=== PATIENT | male | born 1980 | race Caucasian/White ===

== ENCOUNTER 2017-09-02 10:55 | Emergency (ER) | payer SELFPAY ==
[2017-09-02] MEDS ORDERED: IBUPROFEN 800 MG TABLET PO ONE (11:30)
--- NOTE | 2017-09-02 11:36 | ER Document Report ---
ED Extremity Problem, Lower - General Chief Complaint: Ankle Pain Stated Complaint: RIGHT ANKLE PAIN Time Seen by Provider: 09/02/17 11:24 Mode of Arrival: Ambulatory Information source: Patient Notes: 36-year-old male presents to ED for complaint of pain to the right Achilles tendon since a week ago. He states he does not remember any injury or anything it is just been painful for the last week. States he went to the races last night on the way home he had a flat tire changed to*and by the time he got home his ankle was bruised swollen and very painful. States he wrapped it up used ice and went to bed. States he came in this morning because the pain is still bad he has had some bruising and swelling to the ankle. Patient is alert and oriented, pupils equal react to light, speaking in full sentences, patient is able to ambulate but with pain to the ankle. TRAVEL OUTSIDE OF THE [place] IN LAST 30 DAYS: No - HPI Patient complains to provider of: Pain, Swelling, Other - Ecchymosis to the right ankle Location: Ankle, Foot Occurred: Last week Onset/Duration: Gradual, Intermittent Quality of pain: Sharp, Throbbing Severity: Moderate Pain Level: 2 Recent injury: Possibly Associated symptoms: Painful ambulation Exacerbated by: Hanging down, Movement, Walking Relieved by: Elevation, Ice, Rest Past Medical History - General Information source: Patient - Social History Smoking Status: Current Every Day Smoker Cigarette use (# per day): Yes - Pack per day Chew tobacco use (# tins/day): No Smoking Education Provided: Yes - 4 minutes Frequency of alcohol use: Heavy - A couple beers a day Drug Abuse: None 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 Lives with: Family Family History: Reviewed & Not Pertinent Patient has suicidal ideation: No Patient has homicidal ideation: No - Past Medical History Cardiac Medical History: Reports: None Pulmonary Medical History: Reports: None EENT Medical History: Reports: None Neurological Medical History: Reports: None Endocrine Medical History: Reports: None Renal/ Medical History: Reports: None Malignancy Medical History: Reports None GI Medical History: Reports: None Musculoskeltal Medical History: Reports Hx Musculoskeletal Deformity, Reports Hx Musculoskeletal Trauma Skin Medical History: Reports None Psychiatric Medical History: Reports: None Traumatic Medical History: Reports: None Infectious Medical History: Reports: None Past Surgical History: Reports: Hx Cholecystectomy Review of Systems - Review of Systems Constitutional: No symptoms reported EENT: No symptoms reported Cardiovascular: No symptoms reported Respiratory: No symptoms reported Gastrointestinal: No symptoms reported Genitourinary: No symptoms reported Male Genitourinary: No symptoms reported Musculoskeletal: Ankle swelling - Ankle pain bruising and swelling to the right ankle Skin: No symptoms reported Hematologic/Lymphatic: No symptoms reported Neurological/Psychological: No symptoms reported -: Yes All other systems reviewed and negative Physical Exam - Vital signs Vitals: Temp Pulse Resp BP Pulse Ox 98.9 F 83 16 126/76 H 95 09/02/17 11:04 09/02/17 11:04 09/02/17 11:04 09/02/17 11:04 09/02/17 11:04 Interpretation: Normal - General General appearance: Appears well, Alert - HEENT Head: Normocephalic, Atraumatic Eyes: Normal Pupils: PERRL - Respiratory Respiratory status: No respiratory distress Chest status: Nontender Breath sounds: Normal Chest palpation: Normal - Cardiovascular Rhythm: Regular Heart sounds: Normal auscultation Murmur: No - Abdominal Inspection: Normal Distension: No distension Bowel sounds: Normal Tenderness: Nontender Organomegaly: No organomegaly - Back Back: Normal, Nontender - Extremities General upper extremity: Normal inspection, Nontender, Normal color, Normal ROM , Normal temperature General lower extremity: Normal temperature. No: Mason's sign Ankle: Tender, Ecchymosis, Edema, Limited ROM - Due to pain, Unable to bear weight - Full Foot: Tender, Ecchymosis, Edema - Neurological Neuro grossly intact: Yes Cognition: Normal Orientation: AAOx4 Khris Coma Scale Eye Opening: Spontaneous Benson Coma Scale Verbal: Oriented Benson Coma Scale Motor: Obeys Commands Benson Coma Scale Total: 15 Speech: Normal Motor strength normal: LUE, RUE, LLE, RLE Sensory: Normal - Psychological Associated symptoms: Normal affect, Normal mood - Skin Skin Temperature: Warm Skin Moisture: Dry Skin Color: Normal Course - Re-evaluation Re-evalutation: 09/02/17 22:53 X-ray discussed with patient and written report given to patient. Patient was treated with Toney wrap and stirrup splint and crutches for his injury to his ankle. Patient was instructed to elevate ice and use ibuprofen for the pain. Patient was instructed to follow-up with orthopedics. - Vital Signs Vital signs: Temp Pulse Resp BP Pulse Ox 98.9 F 78 18 120/72 99 09/02/17 11:04 09/02/17 13:25 09/02/17 13:25 09/02/17 13:25 09/02/17 13:25 - Diagnostic Test Radiology reviewed: Image reviewed, Reports reviewed Discharge - Discharge Clinical Impression: Right ankle sprain Qualifiers: Encounter type: initial encounter Involved ligament of ankle: unspecified ligament Qualified Code(s): S93.401A - Sprain of unspecified ligament of right ankle, initial encounter Condition: Stable Disposition: HOME, SELF-CARE Additional Instructions: SPRAINED ANKLE: Your sprained ankle results from stretching or tearing of the ligaments which support the ankle. This usually results from twisting the foot inward and under. The ligaments will require time and protection in order to heal properly. Many ankle sprains are quite disabling, and should be taken seriously. The usual treatment for an ankle sprain is cold packs; protection with tape , splints, or wraps; elevation; and staying off the ankle for at least a day. As the ankle improves, you can walk IF it's not painful to bear weight. Sports are best postponed until healing is complete. More serious sprains usually require strengthening exercises after early healing. Your physician has assessed the seriousness of the ligament injury to your ankle. However, the treatment may change, depending on how your ankle progresses. If further exams were recommended, it is important that you follow through. Call the doctor if your foot becomes numb, painful, or severely swollen. TONEY WRAP: A compression dressing (toney wrap) has been placed. This helps hold the area still. It limits swelling and internal bleeding. The wrap should be comfortably snug -- not tight. You should feel a sense of pressure, but not severe pain under the wrap. Unless the physician tells you otherwise, you can adjust the wrap for comfort. If the wrap causes symptoms suggesting it's too tight -- uncomfortable pressure, swelling or discoloration beyond the wrap, numbness, or severe pain - - you must loosen the wrap. If these symptoms don't resolve promptly, return for re-evaluation. ANKLE STIRRUP SPLINT: You are to use an ankle brace called a stirrup splint. This type of brace allows you to place greater stresses on the ankle without risk of re-injury, and is often used for more severe ankle injuries such as avulsion fractures and ligament ruptures. The splint can be worn over a sock or tape. For proper support, wear the splint with a shoe over it. It's important that the splint fit properly. Adjust the heel tension, if needed. If your splint has air bladders, peel back the bottom of each air bladder, then move the Velcro attachment of the heel strap up or down. Air bladder pressure can be adjusted by pulling up the valve at the top, threading the air tube down into the main bladder, then blowing air into the bladder or squeezing it out. The two sides of the stirrup can be moved forward or back on your ankle by changing the attachment of the main straps. If you are unable to use the ankle comfortably in the splint, return for re -evaluation. ICE & ELEVATION: Apply ice packs frequently against the painful area. Many different schedules are recommended, such as "20 minutes on, 20 minutes off" or "one hour ice, two hours rest." If you need to work, you may need to go longer between ice treatments. You should plan to have the area ice packed AT LEAST one- fourth of the time. The ice should be applied over the wrap, tape, or splint, or over a layer of cloth -- not directly against the skin. Some ice bags have a built-in cloth and can be put directly on the skin. Your injured part should be elevated as much as possible over the next 48 hours. Try to keep the injury above the level of the heart. Avoid use of the injured area. Elevation and rest will decrease the swelling. USE OF KAOQ-NHF-SNAICOK IBUPROFEN: Ibuprofen (Advil, Nuprin, Medipren, Motrin IB) is a medication for fever and pain control. In addition, it has anti- inflammatory effects which may be beneficial, especially in the treatment of injuries. It's best to take ibuprofen with food. Persons with ulcer disease or allergy to aspirin should notify their physician of this before taking ibuprofen. Ibuprofen can be given every four to six hours, for a total of four doses daily. Age Pain or fever dose Antiinflammatory dose 6-8 yr 200 mg (1 tab) 200 mg (1 tab) 9-11 yr 200 mg (1 tab) 200-400 mg (1-2 tab) 11-14 yr 200-400 mg (1-2 tab) 400 mg (2 tab) 15-adult 400 mg (2 tab) 600 mg (3 tab) ORAL NARCOTIC MEDICATION: You have been given a prescription for pain control. This medication is a narcotic. It's best taken with food, as nausea can result if taken on an empty stomach. Don't operate machinery or drive within six hours of taking this medication. Do not combine this medicine with alcohol, or with any medication which can cause sedation (such as cold tablets or sleeping pills) unless you get permission from the physician. Narcotics tend to cause constipation. If possible, drink plenty of fluids and eat a diet high in fiber and fruits. Please be aware that prescription narcotics also have the potential for abuse. People become addicted to these medications because of the general sense of wellbeing that they induce. This feeling along with a significant reduction in tension, anxiety, and aggression provides a stimulating seductive quality to these drugs. Once your pain is under control, we encourage you to discard your unused narcotics. FOLLOW-UP CARE: If you have been referred to a physician for follow-up care, call the physician s office for an appointment as you were instructed or within the next two days. If you experience worsening or a significant change in your symptoms, notify the physician immediately or return to the Emergency Department at any time for re-evaluation. Prescriptions: Hydrocodone/Acetaminophen [[place] 5-325 mg Tablet] 1 tab PO Q6HP PRN #7 tablet PRN Reason: Forms: Elevated Blood Pressure, Smoking Cessation Education, Return to Work Referrals: DU SUN MD [ACTIVE STAFF] - Follow up as needed
--- NOTE | 2017-09-02 12:33 | RADIOLOGY REPORT (SQ) ---
EXAM DESCRIPTION: FOOT RIGHT COMPLETE COMPLETED DATE/TIME: 09/02/2017 12:15 pm REASON FOR STUDY: pain swelling bruising COMPARISON: None. NUMBER OF VIEWS: Three views. TECHNIQUE: AP, lateral and oblique without weight bearing radiographic images acquired of the right foot. LIMITATIONS: None. FINDINGS: MINERALIZATION: Normal. BONES: No acute fracture or dislocation. No worrisome bone lesions. No significant osteophytes. JOINTS: No erosions. No shekhar-articular osteopenia. No chondrocalcinosis. SOFT TISSUES: No swelling. No calcifications. OTHER: No other significant finding. IMPRESSION: NEGATIVE STUDY OF THE RIGHT FOOT. NO ACUTE POST-TRAUMATIC CHANGES. NO EXPLANATION FOR PA IN. TECHNICAL DOCUMENTATION: JOB ID: [id number] [employer]- All Rights Reserved Reading location - IP/workstation name: [email or web address]
--- NOTE | 2017-09-02 12:34 | RADIOLOGY REPORT (SQ) ---
EXAM DESCRIPTION: ANKLE RIGHT COMPLETE COMPLETED DATE/TIME: 09/02/2017 12:15 pm REASON FOR STUDY: pain swelling bruising COMPARISON: None. NUMBER OF VIEWS: Three views. TECHNIQUE: AP, lateral, and oblique without weight bearing radiographic images acquired of the right ankle. LIMITATIONS: None. FINDINGS: MINERALIZATION: Normal. BONES: No acute fracture or dislocation. No worrisome bone lesions. Normal alignment. No significant arthritic changes. JOINTS AND SOFT TISSUES: No swelling. No calcifications. No foreign bodies. OTHER: No other significant finding. IMPRESSION: NEGATIVE STUDY OF THE RIGHT ANKLE. NO ACUTE POST-TRAUMATIC CHANGES. NO EXPLANATION FOR P AIN. TECHNICAL DOCUMENTATION: JOB ID: [id number] [employer]- All Rights Reserved Reading location - IP/workstation name: [email or web address]
[2017-09-02 13:26] VITALS: BP 120/72
== END 2017-09-02 13:25 | disposition home or self-care (01) ==
LOC: ER 10:55
DX: S93.401A Sprain of unspecified ligament of right ankle, initial encounter (principal); S90.01XA Contusion of right ankle, initial encounter; M25.571 Pain in right ankle and joints of right foot; M79.89 Other specified soft tissue disorders; X58.XXXA Exposure to other specified factors, initial encounter; F17.210 Nicotine dependence, cigarettes, uncomplicated
CPT/HCPCS: 99406; 99283; 73610; 73630; L1902

== ENCOUNTER 2018-07-15 15:32 | Emergency (ER) | payer SELFPAY ==
--- NOTE | 2018-07-15 15:43 | ER Document Report ---
ED Medical Screen (RME) - General Chief Complaint: Rectal Bleeding Stated Complaint: RECTAL BLEEDING Time Seen by Provider: 07/15/18 15:41 Mode of Arrival: Ambulatory Information source: Patient Notes: 37-year-old male presented to ED for complaint of rectal bleeding. He states he was at work and thought he was sweating a lot went to the bathroom and his underwear were full of blood. He states he is having a little bit of low abdominal cramping and sharp pain but does not know of any hemorrhoids. I did examine his rectal area and he does have a large external hemorrhoid and a lot of blood all over both buttocks and his groin area. Will get CBC and chemistry and have follow-up with a provider in the main ED. Patient states his only history is gallbladder removal at a dose fracture. 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 He is alert oriented respirations regular and unlabored speaking in full sentences walks with a even steady gait. He states it is of a painful to sit down. I have greeted and performed a rapid initial assessment of this patient. A comprehensive ED assessment and evaluation of the patient, analysis of test results and completion of medical decision making process will be conducted by an additional ED providers. TRAVEL OUTSIDE OF THE [place] IN LAST 30 DAYS: No Past Medical History Renal/ Medical History: Denies: Hx Peritoneal Dialysis Musculoskeltal Medical History: Reports Hx Musculoskeletal Deformity, Reports Hx Musculoskeletal Trauma Past Surgical History: Reports: Hx Cholecystectomy Physical Exam - Vital signs Vitals: Temp Pulse Resp BP Pulse Ox 98.2 F 84 16 135/76 H 97 07/15/18 15:38 07/15/18 15:38 07/15/18 15:38 07/15/18 15:38 07/15/18 15:38 Course - Vital Signs Vital signs: Temp Pulse Resp BP Pulse Ox 98.2 F 84 16 135/76 H 97 07/15/18 15:38 07/15/18 15:38 07/15/18 15:38 07/15/18 15:38 07/15/18 15:38
[2018-07-15 16:15] LABS: ABSOLUTE BASOPHILS # (AUTO) 0.1 10^3/uL (0.0-0.2); ABSOLUTE EOSINOPHILS # (AUTO) 0.2 10^3/uL (0.0-0.6); ABSOLUTE MONOCYTES (AUTO) 0.4 10^3/uL (0.1-1.4); ABSOLUTE NEUT (AUTO) 9.7 10^3/uL (1.7-8.2); BASOPHILS % (AUTO) 0.4 % (0-2); EOSINOPHILS % (AUTO) 1.6 % (0-6); HEMATOCRIT 43.6 % (37.9-51.0); LYMPHOCYTES % (AUTO) 22.5 % (13-45); MEAN CORPUSCULAR HEMOGLOBIN 30.7 pg (27.0-33.4); MEAN CORPUSCULAR HGB CONC 34.4 g/dL (32.0-36.0); MEAN CORPUSCULAR VOLUME 89 fl (80-97); PLATELET COUNT 265 10^3/uL (150-450); RED BLOOD COUNT 4.88 10^6/uL (4.35-5.55); RED CELL DISTRIBUTION WIDTH 15.1 % (11.5-14.0); SEGMENTED NEUTROPHILS % (AUTO) 72.5 % (42-78); TOTAL CELLS COUNTED % (AUTO) 100 %; WHITE BLOOD COUNT 13.4 10^3/uL (4.0-10.5)
[2018-07-15 16:29] LABS: ALANINE AMINOTRANSFERASE 29 U/L (21-72); ALKALINE PHOSPHATASE 106 U/L (38-126); ANION GAP 11 (5-19); ASPARTATE AMINO TRANSFERASE 20 U/L (17-59); BILIRUBIN,DIRECT 0.3 mg/dL (0.0-0.4); BILIRUBIN,TOTAL 0.8 mg/dL (0.2-1.3); BLOOD UREA NITROGEN 12 mg/dL (7-20); CALCIUM 9.6 mg/dL (8.4-10.2); CARBON DIOXIDE 26 mmol/L (22-30); CHLORIDE 106 mmol/L (98-107); GLUCOSE 109 mg/dL (75-110); POTASSIUM 3.9 mmol/L (3.6-5.0); TOTAL PROTEIN 6.4 g/dL (6.3-8.2)
--- NOTE | 2018-07-15 18:40 | ER Document Report ---
ED General - General Chief Complaint: Rectal Bleeding Stated Complaint: RECTAL BLEEDING Time Seen by Provider: 07/15/18 15:41 Mode of Arrival: Ambulatory TRAVEL OUTSIDE OF THE [place] IN LAST 30 DAYS: No - HPI Notes: Patient is a 37-year-old male that presents to the emergency department for chief complaint of rectal bleeding. Patient states over the last week he has had bright red blood per rectum. He states it started after having a large hard bowel movement. He denies history of GI bleeding or hemorrhoids in the past. He denies any pain with bowel movements. Today while at work he had a oozing blood from the rectum that left a small area of blood in his underwear which alarmed him. He denies any associated palpitations, shortness of breath, lightheadedness. He is not on any blood thinning medications. He has never had a colonoscopy in the past. Patient also states he has had associated lower abdominal cramping that occurs just prior to bowel movement and is relieved after bowel movement. He currently states that pain is not present. He denies associated fever, nausea and vomiting Past Medical History: Negative Past Surgical History: Cholecystectomy Social History: Daily tobacco, 1-2 drinks daily, denies drug use Family History: Reviewed and noncontributory for presenting illness Allergies: Reviewed, see documented allergy list. REVIEW OF SYSTEMS: CONSTITUTIONAL : No fever No chills No diaphoresis No recent illness EENT: No vision changes No congestion No sore throat CARDIOVASCULAR: No chest pain No palpitations RESPIRATORY: No shortness of breath No cough No difficulty breathing GASTROINTESTINAL: Rectal bleeding abdominal pain No nausea No vomiting No diarrhea GENITOURINARY: No dysuria No hematuria No difficulty urinating MUSCULOSKELETAL: No back pain No leg pain No arm pain SKIN: No rashes No lesions LYMPHATIC: No swollen, enlarged glands. NEUROLOGICAL: No lightheadedness No headache No weakness No paresthesias PSYCHIATRIC: No anxiety No depression PHYSICAL EXAMINATION: Vital signs reviewed, nursing noted reviewed. GENERAL: Well-appearing, well-nourished and in no acute distress. HEAD: Atraumatic, normocephalic. EYES: Eyes appear normal, extraocular movements intact, sclera anicteric, conjunctiva are normal. ENT: nares patent, oropharynx clear without exudates. Moist mucous membranes. NECK: Normal range of motion, supple without lymphadenopathy LUNGS: Breath sounds clear to auscultation bilaterally and equal. No wheezes rales or rhonchi. HEART: Regular rate and rhythm without murmurs ABDOMEN: Soft, nontender, normoactive bowel sounds. No rebound, guarding, or rigidity. No masses appreciated. EXTREMITIES: Nontender, good range of motion, no pitting or edema. NEUROLOGICAL: No focal neurological deficits. Moves all extremities spontaneously Motor and sensory grossly intact on exam. PSYCH: Normal mood, normal affect. SKIN: Warm, Dry, normal turgor, no rashes or lesions noted on exposed skin Past Medical History - General Information source: Patient - Social History Smoking Status: Current Every Day Smoker Frequency of alcohol use: Heavy Drug Abuse: None Family History: Reviewed & Not Pertinent Patient has suicidal ideation: No Patient has homicidal ideation: No Renal/ Medical History: Denies: Hx Peritoneal Dialysis Musculoskeletal Medical History: Reports Hx Musculoskeletal Deformity, Reports Hx Musculoskeletal Trauma Past Surgical History: Reports: Hx Cholecystectomy Physical Exam - Vital signs Vitals: Temp Pulse Resp BP Pulse Ox 98.2 F 84 16 135/76 H 97 07/15/18 15:38 07/15/18 15:38 07/15/18 15:38 07/15/18 15:38 07/15/18 15:38 Course - Re-evaluation Re-evalutation: 07/15/18 18:40 Vitals reviewed. Nursing notes reviewed. Patient had a rectal exam performed in triage which was noted to have a large external hemorrhoid with bleeding and no thrombosis. I did offer patient repeat rectal exam for my own evaluation which he has deferred. Patient's lab work shows no acute anemia. He has a mild leukocytosis but is afebrile with no abdominal tenderness to suggest diverticulitis or colitis. I did risk reduction counselor him on stool softeners as well as sits baths and Preparation H. He was referred to general surgery and GI for outpatient colonoscopy. He was counseled on return precautions and verbalized understanding. He is stable at discharge. Laboratory 07/15/18 07/15/18 16:01 16:01 WBC 13.4 H RBC 4.88 Hgb 15.0 Hct 43.6 MCV 89 MCH 30.7 MCHC 34.4 RDW 15.1 H Plt Count 265 Seg Neutrophils % 72.5 Lymphocytes % 22.5 Monocytes % 3.0 Eosinophils % 1.6 Basophils % 0.4 Absolute Neutrophils 9.7 H Absolute Lymphocytes 3.0 Absolute Monocytes 0.4 Absolute Eosinophils 0.2 Absolute Basophils 0.1 Sodium 143.0 Potassium 3.9 Chloride 106 Carbon Dioxide 26 Anion Gap 11 BUN 12 Creatinine 0.68 Est GFR ( Amer) > 60 Est GFR (Non-Af Amer) > 60 Glucose 109 Calcium 9.6 Total Bilirubin 0.8 Direct Bilirubin 0.3 Neonat Total Bilirubin Not Reportable Neonat Direct Bilirubin Not Reportable Neonat Indirect Bili Not Reportable AST 20 ALT 29 Alkaline Phosphatase 106 Total Protein 6.4 Albumin 4.0 - Vital Signs Vital signs: Temp Pulse Resp BP Pulse Ox 98.2 F 84 16 135/76 H 97 07/15/18 15:38 07/15/18 15:38 07/15/18 15:38 07/15/18 15:38 07/15/18 15:38 - Laboratory Result Diagrams: 07/15/18 16:01 07/15/18 16:01 Laboratory results interpreted by me: 07/15/18 16:01 WBC 13.4 H RDW 15.1 H Absolute Neutrophils 9.7 H Discharge - Discharge Clinical Impression: Rectal bleeding Hemorrhoid Qualifiers: Hemorrhoid type: other Qualified Code(s): K64.8 - Other hemorrhoids Condition: Stable Disposition: HOME, SELF-CARE Instructions: Hemorrhoids ([facility]) Additional Instructions: Please return to the emergency department if you have any worsening, or concern of your symptoms. Please return to the emergency department if you develop chest pain, difficulty breathing, severe abdominal pain, or ongoing vomiting. Please follow-up with your primary care physician in 2-3 days and any other recommended physicians. If prescribed, take all medications as directed. If you have any questions or concerns do not hesitate to return the emergency department for evaluation. Use a stool softener to prevent constipation which will worsen your hemorrhoids Referrals: SEN RIVAS MD [ACTIVE STAFF] - Follow up as needed LACEY MARTINEZ MD [ACTIVE STAFF] - Follow up as needed
[2018-07-15 18:43] VITALS: BP 120/87
== END 2018-07-15 18:50 | disposition home or self-care (01) ==
LOC: ER 15:32
DX: K64.4 Residual hemorrhoidal skin tags (principal); R10.30 Lower abdominal pain, unspecified; Z90.49 Acquired absence of other specified parts of digestive tract; F17.200 Nicotine dependence, unspecified, uncomplicated
CPT/HCPCS: 36415; 80053; 85025; 99283